=== PATIENT | female | born 1955 ===

== ENCOUNTER → 2018-03-07 | Outpatient (CLI) | payer OTHER ==
[~2018-03-07] MED LIST: ASPI325 PO; ASPI81CH PO; Cipro500 MG PO; ENOX80I SC; FURO40 PO; Flomax0.4 MG PO; Klor-Con 1010 MEQ PO; METF500 PO; METO100ER PO; Metoprolol Tar100 MG PO; Naprosyn500 MG PO; Norco 5-325 Ta1 EACH PO; OMEP20ER PO; ONDA4ODT MM; SPIR25 PO; TAMS.4ER PO; WARF5 PO; WARF7.5 PO; Zofran Odt4 MG PO
== END | disposition home or self-care (01) ==
LOC: LAB 13:35 → LAB SHORT 13:35
DX: K57.32 Diverticulitis of large intestine without perforation or abscess without bleeding (principal); R19.7 Diarrhea, unspecified
CPT/HCPCS: 83993

== ENCOUNTER 2018-03-22 08:32 | Day surgery (SDC) | payer OTHER ==
[~2018-03-22] VITALS: Ht 162.6 cm; Wt 89.5 kg
[~2018-03-22 08:32] MED LIST changes: -ENOX80I SC
[2018-03-22] MEDS ORDERED: ENOX80I SC (08:53)
== END 2018-03-22 11:35 | disposition home or self-care (01) ==
LOC: ORSCSDS 08:32
PROVIDERS: Student in an Organized Health Care Education/Training Program
PROC: 0DBN8ZX Excision of Sigmoid Colon, Via Natural or Artificial Opening Endoscopic, Diagnostic (ICD-10-PCS; principal; 2018-03-22 09:45)
PROC: 0DB98ZX Excision of Duodenum, Via Natural or Artificial Opening Endoscopic, Diagnostic (ICD-10-PCS; principal; 2018-03-22 09:45)
PROC: 0DBE8ZX Excision of Large Intestine, Via Natural or Artificial Opening Endoscopic, Diagnostic (ICD-10-PCS; principal; 2018-03-22 09:45)
PROC: 0DB68ZX Excision of Stomach, Via Natural or Artificial Opening Endoscopic, Diagnostic (ICD-10-PCS; principal; 2018-03-22 09:45)
PROC: 0DBP8ZX Excision of Rectum, Via Natural or Artificial Opening Endoscopic, Diagnostic (ICD-10-PCS; principal; 2018-03-22 09:45)
DX: R19.7 Diarrhea, unspecified (principal); D12.5 Benign neoplasm of sigmoid colon; K62.1 Rectal polyp; K44.9 Diaphragmatic hernia without obstruction or gangrene; K64.4 Residual hemorrhoidal skin tags; K29.40 Chronic atrophic gastritis without bleeding; K64.8 Other hemorrhoids; Z86.010 Personal history of colon polyps; K57.30 Diverticulosis of large intestine without perforation or abscess without bleeding; R14.0 Abdominal distension (gaseous); E11.9 Type 2 diabetes mellitus without complications; I10 Essential (primary) hypertension; I48.91 Unspecified atrial fibrillation; F17.210 Nicotine dependence, cigarettes, uncomplicated; E66.9 Obesity, unspecified; Z68.33 Body mass index [BMI] 33.0-33.9, adult; Z79.01 Long term (current) use of anticoagulants; Z79.82 Long term (current) use of aspirin; Z79.84 Long term (current) use of oral hypoglycemic drugs; Z79.899 Other long term (current) drug therapy
CPT/HCPCS: 82947; 88305; 88342; J0330; J1200; J1980; J2250; J2405; J3010; J7120

== ENCOUNTER 2018-10-08 13:47 | Observation (INO) | payer OTHER ==
[~2018-10-08] VITALS: Ht 162.6 cm; Wt 93.5 kg
[~2018-10-08 13:47] MED LIST changes: -ASPI81CH PO; +Aspirin EC81 MG PO; +ENOX80I SC; -OMEP20ER PO; +OMEPRAZOLE MAGN20 MG PO
[2018-10-08 14:30] LABS: BASOPHILS ABSOLUTE AUTO 0.07 K/mm3 (0.00-0.23); BASOPHILS PERCENT AUTO 1 % (0-2); EOSINOPHILS ABSOLUTE AUTO 0.58 K/mm3 (0.00-0.68); EOSINOPHILS PERCENT AUTO 4 % (0-6); Hematocrit 35.8 % (33.0-51.0); Hemoglobin 10.8 g/dL (11.5-16.0); IMMATURE GRAN ABSOLUTE AUTO 0.06 K/mm3 (0.00-0.10); IMMATURE GRAN PERCENT AUTO 0 % (0-1); LYMPHOCYTES ABSOLUTE AUTO 1.73 K/mm3 (0.84-5.20); LYMPHOCYTES PERCENT AUTO 13 % (21-46); MONOCYTES ABSOLUTE AUTO 0.95 K/mm3 (0.16-1.47); MONOCYTES PERCENT AUTO 7 % (4-13); Mean Corpuscular HGB 23.7 pg (26.0-34.0); Mean Corpuscular HGB Conc 30.2 g/dL (31.5-36.5); Mean Corpuscular Volume 79 fL (80-100); Mean Platelet Volume 11.1 fL (9.1-12.4); NEUTROPHILS ABSOLUTE AUTO 9.96 K/mm3 (1.96-9.15); NEUTROPHILS PERCENT AUTO 75 % (41-73); Platelet Count 334 K/mm3 (150-400); RDW Coefficient Variation 16.8 % (11.7-14.2); RDW Standard Deviation 47.2 fL (35.1-46.3); Red Blood Cell Count 4.55 M/mm3 (3.80-5.20); White Blood Cell Count 13.35 K/mm3 (4.00-11.30)
[2018-10-08 15:04] LABS: Alanine Aminotransfer (ALT/SGP 34 U/L (12-78); Albumin, Blood 3.4 g/dL (3.4-5.0); Albumin/Globulin Ratio 0.8 (0.8-1.8); Alk Phos 101 U/L (50-136); Anion Gap 9 mmol/L (6-16); Aspartate Aminotrans (AST/SGOT 32 U/L (12-37); Bilirubin, Total 0.8 mg/dL (0.1-1.0); Blood Urea Nitrogen 16 mg/dL (8-24); Bun/Creatinine Ratio 17.7 (12.0-20.0); CO2, Blood 23 mmol/L (21-32); Calcium, Blood 8.8 mg/dL (8.5-10.1); Chloride, Blood 105 mmol/L (98-108); Creatinine, Blood 0.91 mg/dL (0.40-1.00); Globulin, Blood 4.3 g/dL (2.2-4.0); Glomerular Filtration Rate >60 (60-); Glucose, Blood 234 mg/dL (70-99); Sodium, Blood 137 mmol/L (136-145); Total Protein, Blood 7.7 g/dL (6.4-8.2); Troponin I <0.015 ng/mL (0.000-0.040)
[2018-10-08 17:49] LABS: Influenza A Negative (NEGATIVE); Influenza B Negative (NEGATIVE)
[2018-10-08 18:56] LABS: International Normalized Ratio 2.65; Prothrombin Time Results 25.7 Sec (9.7-11.5)
[2018-10-08] MEDS ORDERED: METO50 PO (19:13)
--- NOTE | 2018-10-09 03:35 | NUR ---
SHIFT SUMMARY PT ADMITTED FOR SOB. FULL CODE. ADA DIET. TELE-[place] AT A RATE OF 108 PER SVP CHIEF MARKETING OFFICER. CBG BEFORE MEALS. ECHO IN THE AM. COUMADIN FOR DVT AND TREATMENT FOR HX OF A-FIB. INDEPENDENT. MEDS WHOLE WITH WATER. 20 G IV TO L AC IS SL. PT IS ALERT, ORIENTED, PLEASENT AND COOPERATIVE WHO CAME TO THE ED AFTER HAVING HAD SOME SOB FOR THE PAST 3 DAYS OR SO. WAS GIVE LASIX IN THE ED AND PT REPORTED FEELING MUCH BETTER SINCE SHE ARRIVED. PT LIVES AT HOME WITH AND PLANS TO RETURN WHEN DISCHARGED FROM THE HOSPITAL. PT APPEARS TO BE SLEEPING COMFORTABLY AT THIS TIME WITH NO APPARENT SIGNS OF ACUTE DISTRESS. ABLE TO MAKE NEEDS KNOWN AND CALL LIGHT IN REACH.
[2018-10-09 05:11] LABS: International Normalized Ratio 2.19; Prothrombin Time Results 21.6 Sec (9.7-11.5)
--- NOTE | 2018-10-09 13:06 | NUR ---
Echocardiogram completed.
[2018-10-09] MEDS ORDERED: POTCHL10ER PO (15:21)
[2018-10-09] MEDS ORDERED: Acetaminophen325 M1 PO (15:21)
[2018-10-09] MEDS ORDERED: FURO20 PO (15:21)
[2018-10-09] MEDS ORDERED: LEVFLO500 PO (15:22)
--- NOTE | 2018-10-09 17:05 | NUR ---
DISCHARGE INSTRUCTIONS COMPLETED AND DISCUSSED WITH PT EXPRESSING UNDERSTANDING. S.O. AT BEDSIDE TO DRIVE HER HOME. SCRIPTS FAXED TO [facility]. TO [facility] VIA W/C.
== END 2018-10-09 16:31 | disposition home or self-care (01) ==
LOC: ER 13:47 → ERHOLD 13:48 → MEDS 13:48 → ENPENDDIS 10-09 13:00 → MEDS 10-09 16:31
PROVIDERS: Emergency Medicine; ADMIT Hospitalist
DX: J81.1 Chronic pulmonary edema (principal); I11.0 Hypertensive heart disease with heart failure; I50.9 Heart failure, unspecified; E11.9 Type 2 diabetes mellitus without complications; I48.91 Unspecified atrial fibrillation; Z88.1 Allergy status to other antibiotic agents; Z88.8 Allergy status to other drugs, medicaments and biological substances; Z79.899 Other long term (current) drug therapy; Z79.01 Long term (current) use of anticoagulants; Z79.82 Long term (current) use of aspirin; Z79.84 Long term (current) use of oral hypoglycemic drugs; Z95.2 Presence of prosthetic heart valve; Z87.891 Personal history of nicotine dependence
CPT/HCPCS: 36415; 71046; 80053; 82947; 83880; 84484; 85025; 85610; 87804; 93005; 93010; 93306; 96374; 99285-25; J1940

== ENCOUNTER 2018-10-19 07:24 | Inpatient (IN) | payer OTHER ==
[~2018-10-19] VITALS: Ht 172.7 cm; Wt 93.5 kg
[~2018-10-19 07:24] MED LIST changes: +Acetaminophen325 M1 PO; +FURO20 PO; +LEVFLO500 PO; +METO50 PO; +POTCHL10ER PO
[2018-10-19 08:03] LABS: BASOPHILS ABSOLUTE AUTO 0.17 K/mm3 (0.00-0.23); BASOPHILS PERCENT AUTO 1 % (0-2); EOSINOPHILS ABSOLUTE AUTO 0.83 K/mm3 (0.00-0.68); EOSINOPHILS PERCENT AUTO 4 % (0-6); Hematocrit 35.3 % (33.0-51.0); Hemoglobin 10.5 g/dL (11.5-16.0); IMMATURE GRAN ABSOLUTE AUTO 0.11 K/mm3 (0.00-0.10); IMMATURE GRAN PERCENT AUTO 1 % (0-1); LYMPHOCYTES ABSOLUTE AUTO 3.75 K/mm3 (0.84-5.20); LYMPHOCYTES PERCENT AUTO 19 % (21-46); MONOCYTES ABSOLUTE AUTO 1.61 K/mm3 (0.16-1.47); MONOCYTES PERCENT AUTO 8 % (4-13); Mean Corpuscular HGB 23.5 pg (26.0-34.0); Mean Corpuscular HGB Conc 29.7 g/dL (31.5-36.5); Mean Corpuscular Volume 79 fL (80-100); Mean Platelet Volume 10.3 fL (9.1-12.4); NEUTROPHILS ABSOLUTE AUTO 12.88 K/mm3 (1.96-9.15); NEUTROPHILS PERCENT AUTO 67 % (41-73); Platelet Count 494 K/mm3 (150-400); RDW Standard Deviation 47.8 fL (35.1-46.3); Red Blood Cell Count 4.47 M/mm3 (3.80-5.20); White Blood Cell Count 19.35 K/mm3 (4.00-11.30)
[2018-10-19 08:15] LABS: International Normalized Ratio 3.63; Prothrombin Time Results 34.2 Sec (9.7-11.5)
[2018-10-19 08:20] LABS: Alanine Aminotransfer (ALT/SGP 29 U/L (12-78); Albumin, Blood 3.4 g/dL (3.4-5.0); Albumin/Globulin Ratio 0.8 (0.8-1.8); Alk Phos 99 U/L (50-136); Anion Gap 11 mmol/L (6-16); Aspartate Aminotrans (AST/SGOT 34 U/L (12-37); Bilirubin, Total 0.5 mg/dL (0.1-1.0); Blood Urea Nitrogen 19 mg/dL (8-24); Bun/Creatinine Ratio 20.1 (12.0-20.0); CO2, Blood 23 mmol/L (21-32); Calcium, Blood 8.5 mg/dL (8.5-10.1); Chloride, Blood 100 mmol/L (98-108); Creatinine, Blood 0.95 mg/dL (0.40-1.00); Globulin, Blood 4.1 g/dL (2.2-4.0); Glomerular Filtration Rate >60 (60-); Glucose, Blood 240 mg/dL (70-99); Potassium, Blood 4.1 mmol/L (3.5-5.5); Sodium, Blood 134 mmol/L (136-145); Total Protein, Blood 7.5 g/dL (6.4-8.2); Troponin I <0.015 ng/mL (0.000-0.040)
[2018-10-19] MEDS ORDERED: [UNRECOGNIZED DRUG - CODE] PO (10:06)
[2018-10-19] MEDS ORDERED: [UNRECOGNIZED DRUG - CODE] PO (10:11)
[2018-10-19 10:52] LABS: BASOPHILS ABSOLUTE AUTO 0.06 K/mm3 (0.00-0.23); BASOPHILS PERCENT AUTO 0 % (0-2); EOSINOPHILS ABSOLUTE AUTO 0.04 K/mm3 (0.00-0.68); EOSINOPHILS PERCENT AUTO 0 % (0-6); Hematocrit 31.1 % (33.0-51.0); Hemoglobin 9.5 g/dL (11.5-16.0); IMMATURE GRAN PERCENT AUTO 1 % (0-1); LYMPHOCYTES ABSOLUTE AUTO 1.13 K/mm3 (0.84-5.20); LYMPHOCYTES PERCENT AUTO 8 % (21-46); MONOCYTES ABSOLUTE AUTO 0.75 K/mm3 (0.16-1.47); MONOCYTES PERCENT AUTO 5 % (4-13); Mean Corpuscular HGB 23.6 pg (26.0-34.0); Mean Corpuscular HGB Conc 30.5 g/dL (31.5-36.5); Mean Corpuscular Volume 77 fL (80-100); Mean Platelet Volume 10.2 fL (9.1-12.4); NEUTROPHILS ABSOLUTE AUTO 12.53 K/mm3 (1.96-9.15); NEUTROPHILS PERCENT AUTO 86 % (41-73); Platelet Count 329 K/mm3 (150-400); RDW Coefficient Variation 16.7 % (11.7-14.2); RDW Standard Deviation 47.3 fL (35.1-46.3); Red Blood Cell Count 4.02 M/mm3 (3.80-5.20); White Blood Cell Count 14.61 K/mm3 (4.00-11.30)
[2018-10-19 12:50] LABS: Source, Urine Clean Catch
[2018-10-19 12:55] LABS: Bilirubin, Urine Neg (Neg); Blood, Urine 2+ (Neg); Glucose Qualitative, Urine Neg (Neg); Ketones, Urine Neg (Neg); Leukocyte Esterase, Urine Neg (Neg); Nitrite, Urine Neg (Neg); Protein, Urine Neg (Neg); Specific Gravity, Urine 1.015 (1.003-1.022); Urobilinogen, Urine NORM (Normal)
[2018-10-19 13:03] LABS: Appearance, Urine Clear (Clear); Color, Urine Pale Yellow (P-Yellow)
[2018-10-19 13:11] LABS: Bacteria Many /hpf; Red Blood Cells, Urine Not Seen /hpf (0-2); Squamous Epithelial Cells Rare /hpf (Few); White Blood Cells, Urine Not Seen /hpf (0-5)
[2018-10-19] MEDS ORDERED: METO100 PO ×2 (13:30→13:32)
[2018-10-19 14:15] LABS: Adenovirus Not Detected (NOT DETECT); Bordetella pertussis Not Detected (NOT DETECT); Chlamydophila pneumoniae Not Detected (NOT DETECT); Coronavirus 229E Not Detected (NOT DETECT); Coronavirus HKU1 Not Detected (NOT DETECT); Coronavirus NL63 Not Detected (NOT DETECT); Coronavirus OC43 Not Detected (NOT DETECT); Human Metapneumovirus Not Detected (NOT DETECT); Human Rhinovirus/Enterovirus Not Detected (NOT DETECT); Influenza A Not Detected (NOT DETECT); Influenza A/2009-H1 Not Detected (NOT DETECT); Influenza A/H1 Not Detected (NOT DETECT); Influenza A/H3 Not Detected (NOT DETECT); Influenza B Not Detected (NOT DETECT); Mycoplasma pneumoniae Not Detected (NOT DETECT); Parainfluenza Virus 1 Not Detected (NOT DETECT); Parainfluenza Virus 2 Not Detected (NOT DETECT); Parainfluenza Virus 3 Not Detected (NOT DETECT); Parainfluenza Virus 4 Not Detected (NOT DETECT); Respiratory Syncytial Virus Not Detected (NOT DETECT)
--- NOTE | 2018-10-19 18:17 | NUR ---
SHIFT SUMMARY, RESUMED CARE OF PT AT 1310, RECIVED REPORT FROM DERICK, ER NURSE. PT CAME UP ON 2L OF VIA NC. PT WAS MOMENTARLY PLACED ON BIPAP DUE TO DYSPNEA ON EXCERTION. OVER THE NEXT COUPLE HOURS, PT OXYGENATION IMPROVED AND IS CURRENTLY ON ROOM AIR, AND TOLERATING IT FAIRLY WELL. PT DENIES ANY PAIN AT THIS TIME. BED AT LOWEST LEVEL, AND CALL LIGHT IS WITHIN REACH. WILL CONTINUE TO MONITOR OXYGEN STATUS UNTIL REPORT IS GIVEN.
--- NOTE | 2018-10-19 18:51 | NUR ---
ARRIVAL TO UNIT Pt arrived to unit at 1310 from emergency department. Report recieved from Benjamin NINO by Ronel SERVIN, who will be caring for the pt in PCU. Pt mobilized from ED gurney to PCU bed with stand-pivot transfer. Pt tolerated activity well. Pt arrived wearing 2 LPM NC. Pt eventually titrated to room air. OOB several times to use bedside commode. Pt required BiPAP once, during an episode where she became tachypnic and anxious. Pt's O2 saturations remained above 90% during this episode. Report given to oncdolly Lee.
--- NOTE | 2018-10-19 20:26 | NUR ---
PATIENT GAVE SNEBARRY PERMISSION TO PROVIDE CARE ON 10/19/18.
[2018-10-20 04:24] LABS: BASOPHILS ABSOLUTE AUTO 0.06 K/mm3 (0.00-0.23); BASOPHILS PERCENT AUTO 0 % (0-2); EOSINOPHILS ABSOLUTE AUTO 0.35 K/mm3 (0.00-0.68); EOSINOPHILS PERCENT AUTO 3 % (0-6); Hematocrit 30.4 % (33.0-51.0); Hemoglobin 9.1 g/dL (11.5-16.0); IMMATURE GRAN ABSOLUTE AUTO 0.04 K/mm3 (0.00-0.10); IMMATURE GRAN PERCENT AUTO 0 % (0-1); LYMPHOCYTES ABSOLUTE AUTO 1.95 K/mm3 (0.84-5.20); LYMPHOCYTES PERCENT AUTO 14 % (21-46); MONOCYTES ABSOLUTE AUTO 1.17 K/mm3 (0.16-1.47); MONOCYTES PERCENT AUTO 8 % (4-13); Mean Corpuscular HGB 23.5 pg (26.0-34.0); Mean Corpuscular HGB Conc 29.9 g/dL (31.5-36.5); Mean Corpuscular Volume 79 fL (80-100); Mean Platelet Volume 9.9 fL (9.1-12.4); NEUTROPHILS ABSOLUTE AUTO 10.56 K/mm3 (1.96-9.15); NEUTROPHILS PERCENT AUTO 75 % (41-73); Platelet Count 315 K/mm3 (150-400); RDW Coefficient Variation 17.2 % (11.7-14.2); RDW Standard Deviation 48.7 fL (35.1-46.3); Red Blood Cell Count 3.87 M/mm3 (3.80-5.20); White Blood Cell Count 14.13 K/mm3 (4.00-11.30)
[2018-10-20 04:37] LABS: International Normalized Ratio 2.81; Prothrombin Time Results 27.1 Sec (9.7-11.5)
[2018-10-20 04:44] LABS: Albumin/Globulin Ratio 0.8 (0.8-1.8); Bilirubin, Total 0.7 mg/dL (0.1-1.0); Bun/Creatinine Ratio 17.5 (12.0-20.0); Calcium, Blood 7.8 mg/dL (8.5-10.1); Creatinine, Blood 1.03 mg/dL (0.40-1.00); Globulin, Blood 3.7 g/dL (2.2-4.0); Total Protein, Blood 6.7 g/dL (6.4-8.2); Troponin I 0.037 ng/mL (0.000-0.040)
[2018-10-20 13:49] LABS: Vancomycin, Trough 15.8 ug/mL (5.0-10.0)
--- NOTE | 2018-10-20 19:31 | NUR ---
SHIFT SUMMARY PT SITTING COMFORTABLY IN HER CHAIR ON RA SATURATING AT 92% AND A HEART RATE OF 120 SINUS TACH. PT ALERT AND ORIENTED X3. PT UTILIZES BSC WITH MINIMAL ASSIST. PT HAD ASPIRATION BOUT AT BREAKFAST THAT ESCALATED ANXIETY LEADING TO NEED FOR BIPAP RESCUE. BIPAP WAS USED FOR RESCUE, CONSIDERABLY LESS NEED FOR BIPAP THIS AFTERNOON. PT STATED ITCHING AT THE BEGINNING OF LEVAQUIN INFUSION IN R HAND, BUT SUBSIDED. IV WAS FLUSHED AT END OF SHIFT, PT STATED SLIGHT BURNING IN R. HAND IV. WILL CONTINUE TO MONITOR AND PASS ON TO SURVEILLANCE SYSTEM MONITOR RN. PT HAS BEEN FREE OF PAIN, AND NO ACUTE SOB EXACERBATIONS SINCE 1400. LUNG SOUNDS MINIMAL CRACKLES AND COARSNESS IN BILATERAL BASES.
--- NOTE | 2018-10-21 04:04 | NUR ---
SHIFT SUMMARY: PATIENT TOLERATED MSERIES BIPAP WELL. EXPERIENCED AN EPISODE OF DIAPHORESIS AND USED 2L NC, SAT. ABOVE 90%. TOLERATED VANCO AFTER TRANSFERRING TO L ARM IV SITE. BED LOW AND LOCK, CALL LIGHT WITHIN REACH AND USED APPROPRIATEDLY.
[2018-10-21 04:13] LABS: BASOPHILS ABSOLUTE AUTO 0.05 K/mm3 (0.00-0.23); BASOPHILS PERCENT AUTO 0 % (0-2); EOSINOPHILS ABSOLUTE AUTO 0.05 K/mm3 (0.00-0.68); EOSINOPHILS PERCENT AUTO 0 % (0-6); Hematocrit 28.1 % (33.0-51.0); Hemoglobin 8.4 g/dL (11.5-16.0); IMMATURE GRAN PERCENT AUTO 1 % (0-1); LYMPHOCYTES ABSOLUTE AUTO 2.14 K/mm3 (0.84-5.20); LYMPHOCYTES PERCENT AUTO 13 % (21-46); MONOCYTES ABSOLUTE AUTO 1.23 K/mm3 (0.16-1.47); MONOCYTES PERCENT AUTO 7 % (4-13); Mean Corpuscular HGB 23.3 pg (26.0-34.0); Mean Corpuscular HGB Conc 29.9 g/dL (31.5-36.5); Mean Corpuscular Volume 78 fL (80-100); NEUTROPHILS ABSOLUTE AUTO 12.98 K/mm3 (1.96-9.15); NEUTROPHILS PERCENT AUTO 79 % (41-73); Platelet Count 315 K/mm3 (150-400); RDW Coefficient Variation 17.2 % (11.7-14.2); RDW Standard Deviation 48.2 fL (35.1-46.3); White Blood Cell Count 16.55 K/mm3 (4.00-11.30)
[2018-10-21 04:29] LABS: International Normalized Ratio 1.83; Prothrombin Time Results 18.4 Sec (9.7-11.5)
[2018-10-21 04:32] LABS: Alanine Aminotransfer (ALT/SGP 24 U/L (12-78); Albumin, Blood 2.9 g/dL (3.4-5.0); Albumin/Globulin Ratio 0.8 (0.8-1.8); Alk Phos 66 U/L (50-136); Anion Gap 7 mmol/L (6-16); Aspartate Aminotrans (AST/SGOT 32 U/L (12-37); Bilirubin, Total 0.8 mg/dL (0.1-1.0); Blood Urea Nitrogen 21 mg/dL (8-24); Bun/Creatinine Ratio 22.1 (12.0-20.0); CO2, Blood 24 mmol/L (21-32); Calcium, Blood 7.8 mg/dL (8.5-10.1); Chloride, Blood 102 mmol/L (98-108); Creatinine, Blood 0.95 mg/dL (0.40-1.00); Globulin, Blood 3.7 g/dL (2.2-4.0); Glomerular Filtration Rate >60 (60-); Glucose, Blood 143 mg/dL (70-99); Potassium, Blood 3.9 mmol/L (3.5-5.5); Sodium, Blood 133 mmol/L (136-145); Total Protein, Blood 6.6 g/dL (6.4-8.2)
[2018-10-21 13:51] LABS: Vancomycin, Trough 25.5 ug/mL (5.0-10.0)
--- NOTE | 2018-10-21 17:46 | NUR ---
SHIFT SUMMARY PT AXO X3, UP IN THE CHAIR MOST OF THE DAY. ON RA MOST OF THE DAY WITH NO NEED FOR RESCUE BIPAP. SATURATING ON RA AT 94%. LUNG SOUNDS ARE DIMINISHED BUT CRACKLES HAVE SUBSIDED. PT IS UTILIZING INCENTIVE SPIROMETER AND FLUTTER VALVE EFFECTIVELY. PT HAD SMALL BOUT OF EXPIRATORY WHEEZING WITHOUT SOB AFTER AMBULATION TO [facility], RESPIRATORY THERAPY GAVE TREATMENT AND WHEEZING SUBSIDED. PT STATES FEELING TIRED TODAY AFTER LIMITED SLEEP LASTNIGHT, BUT OVERALL ANXIETY IS IMPROVING. CALL LIGHT IN REACH, PT ORIENTED TO NEED FOR STAFF WITH AMBULATION.
--- NOTE | 2018-10-22 01:37 | NUR ---
still sitting up in chair - personal preferance, a+o, cooperative with staff, calls appropriatly, aki appropriatly, infusing abx, will continue to monitor and treat as appropriat
[2018-10-22 04:20] LABS: BASOPHILS ABSOLUTE AUTO 0.04 K/mm3 (0.00-0.23); BASOPHILS PERCENT AUTO 0 % (0-2); EOSINOPHILS ABSOLUTE AUTO 0.03 K/mm3 (0.00-0.68); EOSINOPHILS PERCENT AUTO 0 % (0-6); Hematocrit 28.8 % (33.0-51.0); Hemoglobin 8.4 g/dL (11.5-16.0); IMMATURE GRAN PERCENT AUTO 1 % (0-1); LYMPHOCYTES ABSOLUTE AUTO 2.84 K/mm3 (0.84-5.20); LYMPHOCYTES PERCENT AUTO 16 % (21-46); MONOCYTES ABSOLUTE AUTO 1.55 K/mm3 (0.16-1.47); MONOCYTES PERCENT AUTO 9 % (4-13); Mean Corpuscular HGB 23.3 pg (26.0-34.0); Mean Corpuscular HGB Conc 29.2 g/dL (31.5-36.5); Mean Corpuscular Volume 80 fL (80-100); Mean Platelet Volume 10.3 fL (9.1-12.4); NEUTROPHILS ABSOLUTE AUTO 13.58 K/mm3 (1.96-9.15); NEUTROPHILS PERCENT AUTO 75 % (41-73); Platelet Count 340 K/mm3 (150-400); RDW Coefficient Variation 17.4 % (11.7-14.2); RDW Standard Deviation 48.9 fL (35.1-46.3); Red Blood Cell Count 3.61 M/mm3 (3.80-5.20); White Blood Cell Count 18.14 K/mm3 (4.00-11.30)
[2018-10-22 04:34] LABS: International Normalized Ratio 2.34
[2018-10-22 04:48] LABS: Anion Gap 9 mmol/L (6-16); Blood Urea Nitrogen 26 mg/dL (8-24); Bun/Creatinine Ratio 26.3 (12.0-20.0); CO2, Blood 22 mmol/L (21-32); Calcium, Blood 7.9 mg/dL (8.5-10.1); Chloride, Blood 100 mmol/L (98-108); Creatinine, Blood 0.99 mg/dL (0.40-1.00); Glomerular Filtration Rate >60 (60-); Glucose, Blood 126 mg/dL (70-99); Phosphorus, Blood 3.2 mg/dL (2.5-4.9); Sodium, Blood 131 mmol/L (136-145); Vancomycin, Random 14.2 ug/mL
[2018-10-22 04:50] LABS: PCO2 Arterial 35.9 mmHg (35-45); PO2 Arterial 67.5 mmHg (80-100); pH Blood Arterial 7.42 (7.35-7.45)
--- NOTE | 2018-10-22 07:22 | NUR ---
a+o, wanted to stay in chair all night due to breathing, encouraged pickle and incentive spirometer, call light in reach, able to make needs known, saline locked, room air, bipap available but not utilized during shift, walking rounds completed with day staff
--- NOTE | 2018-10-22 18:50 | NUR ---
SHIFT SUMMARY. A&OX4, SBA TO BATHROOM. PT IS NO MEDICAL FLOOR STATUS WITHOUT TELE. BIPAP D/C'D, ON RA. PT DENIES PAIN, SOB, N/V. NO OTHER CHANGES.
--- NOTE | 2018-10-22 20:00 | NUR ---
Initial Visit: Palliative Care Consult for AD/POST amd Pulmonary. Pt is A&Ox4 and denies pain at this time. Pt reports 5/7 dyspnea and states dyspnea worsens with expertion. Pt denies anxiety and nausea. Engaged in therapeutic conversation regarding goals of care including AD/POLST. Pt lives at home with her partner Chase and she is of Islam ruth. Pt reports having 3 daughters all live in [place]. Listened as Pt expressed grief regarding her son who was murdered 4 years ago. Offered emotional support. Pt reports adequate support with her partner Chase. Educated Pt on disease process of CHF. Encouraged Pt to have important conversation with her PCP and patient support specialist routinely regarding disease trajectory. Educated Pt on the importance of advanced care planning and to be proactive in a plan as the disease process takes its coarse. Discussed AD/POLST with Pt. Pt expresses interest in advance directive. Educated Pt on life sustaining measures and risk factors. Educated Pt on the importance of having a healthcare veterans employment representative. Pt states she will complete advance directive at home with her partner. Pt request an advance directive for Chase as well. This RN gave Pt 2 advance directives and instructed her to contact palliative care for any questions. Pt reports no conerns at this time. Plan: Will remain available
[2018-10-23 04:13] LABS: Hematocrit 28.5 % (33.0-51.0); Hemoglobin 8.5 g/dL (11.5-16.0); Mean Corpuscular HGB 23.1 pg (26.0-34.0); Mean Corpuscular HGB Conc 29.8 g/dL (31.5-36.5); Mean Platelet Volume 10.3 fL (9.1-12.4); Platelet Count 375 K/mm3 (150-400); RDW Coefficient Variation 17.5 % (11.7-14.2); RDW Standard Deviation 48.3 fL (35.1-46.3); Red Blood Cell Count 3.68 M/mm3 (3.80-5.20); White Blood Cell Count 15.66 K/mm3 (4.00-11.30)
[2018-10-23 04:15] LABS: Mean Corpuscular Volume 77 fL (80-100)
[2018-10-23 04:28] LABS: International Normalized Ratio 3.11; Prothrombin Time Results 29.7 Sec (9.7-11.5)
[2018-10-23 04:29] LABS: Albumin, Blood 3.3 g/dL (3.4-5.0); Anion Gap 8 mmol/L (6-16); Blood Urea Nitrogen 33 mg/dL (8-24); Bun/Creatinine Ratio 29.7 (12.0-20.0); CO2, Blood 27 mmol/L (21-32); Calcium, Blood 8.6 mg/dL (8.5-10.1); Chloride, Blood 101 mmol/L (98-108); Creatinine, Blood 1.11 mg/dL (0.40-1.00); Glomerular Filtration Rate 53 (60-); Glucose, Blood 107 mg/dL (70-99); Phosphorus, Blood 3.9 mg/dL (2.5-4.9); Potassium, Blood 3.9 mmol/L (3.5-5.5); Sodium, Blood 136 mmol/L (136-145)
--- NOTE | 2018-10-23 06:28 | NUR ---
SHIFT SUMMARY .. STAYED UP ALMOST ALL NOC TALKING ON PHONE AND WATCING TV IN RECLINER CHAIR. BIPAP DCD AND NO O2 REQUIRED. LUNGS CLEAR AND ENC TO USE I.S. AND FLUTTER VALVE FREQ AND NEEDS CONSTANT REMINDER./ HS SNACK . NO PAIN ISSUES OR OTHER ACUTE ISSUES. INDEPENDENT IN ROOM . MED NO TELE. DEPENTENT EDEMA 2+ LOWER EXT
--- NOTE | 2018-10-23 08:43 | NUR ---
pt sitting up in the chair for breakfast, a/ox3, pleasant and cooperative with care, follows commands well, denies pain, lungs are clear t/o, resp even and unlabored, nonproductive cough reported, hrr, +1 edema noted to b/l le, ppp+1, cap refill <3sec, vs stable, afebrile, iv site is clear and patent, s.l. btx4, abd flat soft nontender, voids without diff, skin c/w/d, mareinier cox, call light in reach.
--- NOTE | 2018-10-23 12:11 | NUR ---
Jhonny. WORKED WITH PT, SHE AMBULATED ABOUT 50 FT. DOING WELL. VS STABLE. AFEBRILE, CALL LIGHT IN REACH.
--- NOTE | 2018-10-23 17:55 | NUR ---
pt has spent most of the day in her chair, she states she is feeling better, no complaints. call light in reach.
[2018-10-24 04:43] LABS: Anion Gap 10 mmol/L (6-16); Blood Urea Nitrogen 33 mg/dL (8-24); Bun/Creatinine Ratio 32.4 (12.0-20.0); CO2, Blood 27 mmol/L (21-32); Calcium, Blood 9.6 mg/dL (8.5-10.1); Chloride, Blood 102 mmol/L (98-108); Creatinine, Blood 1.02 mg/dL (0.40-1.00); Glomerular Filtration Rate 58 (60-); Glucose, Blood 129 mg/dL (70-99); International Normalized Ratio 3.42; Phosphorus, Blood 4.2 mg/dL (2.5-4.9); Potassium, Blood 3.9 mmol/L (3.5-5.5); Prothrombin Time Results 32.4 Sec (9.7-11.5); Sodium, Blood 139 mmol/L (136-145)
--- NOTE | 2018-10-24 05:30 | NUR ---
SHIFT SUMMARY PT MEDICAL NO TELE STATUS. A&O X4. VSS. LUNG SOUNDS CLEAR T/O. SPO2 > 92% ON RA. PT STATES "I'M DOING SO MUCH BETTER. I CAN ACTUALLY SAY A SENTENCE AND HAVE A CONVERSATION WITH YOU W/OUT GETTING SOB." NO EVENTS T/O SHIFT. PT EAGER TO DISCHARGE HOME. WILL CONTINUE TO MONITOR AND PROVIDE CARE UNTIL REPORT OFF TO DAY SHIFT RN.
--- NOTE | 2018-10-24 08:00 | NUR ---
ASSUMED CARE PT ALERT AND ORIENTED. VS STABLE. 02 SATS >92% ON ROOM AIR. LS CLEAR. PT DENIES FEELING SOB. PT INDEPENDENT IN ROOM. PT STATES SHE IS READY TO DISCHARGE. WILL CONTINUE TO MONITOR.
[2018-10-24] MEDS ORDERED: AZIT500 PO (12:25)
[2018-10-24] MEDS ORDERED: CEPACOL SORE T1 EACH MM (12:26)
[2018-10-24] MEDS ORDERED: Acidophilus1 EAC2 PO (12:27)
[2018-10-24] MEDS ORDERED: CEFU500T30 PO (12:30)
[2018-10-24] MEDS ORDERED: DELTASONE20 MG PO (12:30)
[2018-10-24] MEDS ORDERED: SPIR25 PO (12:31)
--- NOTE | 2018-10-24 13:15 | NUR ---
PT PROVIDED DISCHARGE INSTRUCTIONS. CARE MANAGEMENT IN TO INFORM PT OF HOME HEALTH INSTRUCTIONS. IV REMOVED AND INTACT. ALL QUESTIONS ANSWERED. NEW MEDICATIONS FAXED TO [facility] AND PT EDUCATED. PT TAKEN OUT BY WHEELCHAIR.
--- NOTE | 2018-10-24 13:57 | NUR ---
Met pt sitting in a chair resting reports to be going home today and is happy. Offered prayers and support.
== END 2018-10-24 13:31 | disposition home health service (06) | DRG 871 ==
LOC: ER 07:24 → ERHOLD 10:12 → PCU 10:12
PROVIDERS: Emergency Medicine; Internal Medicine; ADMIT Family Medicine
PROC: 5A09357 Assistance with Respiratory Ventilation, Less than 24 Consecutive Hours, Continuous Positive Airway Pressure (ICD-10-PCS; principal; 2018-10-19)
DX: A41.51 Sepsis due to Escherichia coli [E. coli] (principal); J96.21 Acute and chronic respiratory failure with hypoxia; J18.1 Lobar pneumonia, unspecified organism; I50.33 Acute on chronic diastolic (congestive) heart failure; J44.1 Chronic obstructive pulmonary disease with (acute) exacerbation; J44.0 Chronic obstructive pulmonary disease with (acute) lower respiratory infection; Z95.2 Presence of prosthetic heart valve; I48.2 Chronic atrial fibrillation; Z79.01 Long term (current) use of anticoagulants; F17.210 Nicotine dependence, cigarettes, uncomplicated; Z79.82 Long term (current) use of aspirin; Z68.32 Body mass index [BMI] 32.0-32.9, adult; E66.9 Obesity, unspecified; G47.33 Obstructive sleep apnea (adult) (pediatric); K21.9 Gastro-esophageal reflux disease without esophagitis; Z79.84 Long term (current) use of oral hypoglycemic drugs; I11.0 Hypertensive heart disease with heart failure; E11.65 Type 2 diabetes mellitus with hyperglycemia; T38.0X5A Adverse effect of glucocorticoids and synthetic analogues, initial encounter; Y92.239 Unspecified place in hospital as the place of occurrence of the external cause
CPT/HCPCS: 36415; 36600; 71045; 71046; 80053; 80069; 80202; 81001; 82803; 82947; 83036; 83605; 83880; 84484; 85025; 85027; 85610; 87040; 87077; 87086; 87186; 87449; 87486; 87581; 87633; 87798; 93005; 93010; 94640; 94660; 94667; 94762; 96374; 96375; 97116; 97161; 97165; 97530; 97535; 99285-25; J0692; J0696; J1940; J1956; J3370; J7030; J7050; J7512

== ENCOUNTER 2018-10-29 22:17 | Inpatient (IN) | payer OTHER ==
[~2018-10-29] VITALS: Ht 170.2 cm; Wt 96.0 kg
[~2018-10-29 22:17] MED LIST changes: +AZIT500 PO; +Acidophilus1 EAC2 PO; +CEFU500T30 PO; +CEPACOL SORE T1 EACH MM; +DELTASONE20 MG PO; +METO100 PO; +[UNRECOGNIZED DRUG - CODE] PO; +[UNRECOGNIZED DRUG - CODE] PO
[2018-10-29] MEDS ORDERED: WARF7.5 PO (22:33)
[2018-10-29 22:38] LABS: BASOPHILS ABSOLUTE AUTO 0.05 K/mm3 (0.00-0.23); BASOPHILS PERCENT AUTO 0 % (0-2); EOSINOPHILS PERCENT AUTO 2 % (0-6); Hematocrit 31.1 % (33.0-51.0); Hemoglobin 9.3 g/dL (11.5-16.0); IMMATURE GRAN ABSOLUTE AUTO 0.11 K/mm3 (0.00-0.10); IMMATURE GRAN PERCENT AUTO 1 % (0-1); LYMPHOCYTES ABSOLUTE AUTO 2.57 K/mm3 (0.84-5.20); LYMPHOCYTES PERCENT AUTO 12 % (21-46); MONOCYTES ABSOLUTE AUTO 1.71 K/mm3 (0.16-1.47); MONOCYTES PERCENT AUTO 8 % (4-13); Mean Corpuscular HGB 23.3 pg (26.0-34.0); Mean Corpuscular HGB Conc 29.9 g/dL (31.5-36.5); Mean Corpuscular Volume 78 fL (80-100); Mean Platelet Volume 10.1 fL (9.1-12.4); NEUTROPHILS ABSOLUTE AUTO 16.34 K/mm3 (1.96-9.15); NEUTROPHILS PERCENT AUTO 77 % (41-73); Platelet Count 407 K/mm3 (150-400); RDW Coefficient Variation 17.2 % (11.7-14.2); RDW Standard Deviation 48.8 fL (35.1-46.3); White Blood Cell Count 21.18 K/mm3 (4.00-11.30)
[2018-10-29 22:50] LABS: Albumin, Blood 3.4 g/dL (3.4-5.0); Albumin/Globulin Ratio 0.9 (0.8-1.8); Bilirubin, Total 0.8 mg/dL (0.1-1.0); Bun/Creatinine Ratio 15.4 (12.0-20.0); Calcium, Blood 8.7 mg/dL (8.5-10.1); Creatinine, Blood 1.88 mg/dL (0.40-1.00); Globulin, Blood 3.6 g/dL (2.2-4.0); Potassium, Blood 4.3 mmol/L (3.5-5.5)
[2018-10-29 23:05] LABS: Source, Urine Clean Catch
[2018-10-29 23:08] LABS: Blood, Urine 5+ (Neg); Glucose Qualitative, Urine Neg (Neg); Ketones, Urine 1+ (Neg); Leukocyte Esterase, Urine 1+ (Neg); Nitrite, Urine Neg (Neg); Protein, Urine 2+ (Neg); Specific Gravity, Urine 1.025 (1.003-1.022); Urobilinogen, Urine 1+ (Normal)
[2018-10-29 23:13] LABS: Bilirubin, Urine 1+ (Neg)
[2018-10-29 23:14] LABS: Appearance, Urine Hazy (Clear); Color, Urine Amber (P-Yellow)
[2018-10-29 23:15] LABS: Amorphous Light (0-Heavy); Bacteria Mod /hpf; Red Blood Cells, Urine TNTC /hpf (0-2); Squamous Epithelial Cells Few /hpf (Few)
--- NOTE | 2018-10-30 01:35 | NUR ---
0135 ADMIT: PT ARRIVES TO ROOM 230 VIA GOURNEY FROM ER AND TRANSFERS SELF WITH SBA TO BED; APPEARS STEADY ON FEET. PT ORIENTED TO BED, ROOM, FALL PRECAUTIONS, AND CALL SYSTEM. DENIES PAIN AT THIS TIME. CALL LIGHT PLACED IN REACH.
--- NOTE | 2018-10-30 07:46 | NUR ---
TANIA: NEW ADMIT AFIB WITH RVR ON HOSPITALIST SERVICE. VSS, AFEBRILE ON ROOM AIR WITH TELE ART NSR IN THE 70'S. PT DENIES DIZZINESS, HEADACHE, SOB OR CHEST PAIN. CONTINUE HYDRATION AND AWAIT PT VOID. CONTINUE OT MONITOR PTT, LACTIC ACID.
[2018-10-30 08:37] LABS: BASOPHILS ABSOLUTE AUTO 0.03 K/mm3 (0.00-0.23); BASOPHILS PERCENT AUTO 0 % (0-2); EOSINOPHILS ABSOLUTE AUTO 0.34 K/mm3 (0.00-0.68); EOSINOPHILS PERCENT AUTO 2 % (0-6); Hematocrit 27.6 % (33.0-51.0); Hemoglobin 8.1 g/dL (11.5-16.0); IMMATURE GRAN ABSOLUTE AUTO 0.07 K/mm3 (0.00-0.10); IMMATURE GRAN PERCENT AUTO 1 % (0-1); LYMPHOCYTES ABSOLUTE AUTO 2.69 K/mm3 (0.84-5.20); LYMPHOCYTES PERCENT AUTO 19 % (21-46); MONOCYTES PERCENT AUTO 9 % (4-13); Mean Corpuscular HGB 22.8 pg (26.0-34.0); Mean Corpuscular HGB Conc 29.3 g/dL (31.5-36.5); Mean Corpuscular Volume 78 fL (80-100); Mean Platelet Volume 9.8 fL (9.1-12.4); NEUTROPHILS ABSOLUTE AUTO 10.02 K/mm3 (1.96-9.15); NEUTROPHILS PERCENT AUTO 69 % (41-73); Platelet Count 315 K/mm3 (150-400); RDW Coefficient Variation 17.5 % (11.7-14.2); RDW Standard Deviation 48.7 fL (35.1-46.3); Red Blood Cell Count 3.56 M/mm3 (3.80-5.20); White Blood Cell Count 14.45 K/mm3 (4.00-11.30)
[2018-10-30 08:52] LABS: International Normalized Ratio 1.79
[2018-10-30 09:03] LABS: Creatinine, Blood 1.75 mg/dL (0.40-1.00); Potassium, Blood 4.1 mmol/L (3.5-5.5)
--- NOTE | 2018-10-30 10:10 | NUR ---
RECEIVED REPORT FROM APPLIANCE SALES ASSOCIATE. PT TRANSFERRED TO ROOM ICU 2, ASSUMED CARE OF PT.
--- NOTE | 2018-10-30 10:30 | NUR ---
NURSING AND TRANSFER SUMMARY RECEIVED PT FROM SURGICAL UNIT. LUNGS WITH CRACKLES AND WHEEZES THROUGHOUT, 1L O2 NC, SATS 90%, INCREASED O2 FLOW TO 4L, INCREASED SATS TO 94%. DYSPNEA AT REST, TACHYPNEIC, SITTING UP ON SIDE OF BED, UNABLE TO LAY DOWN IN BED. BP ELEVATED 190'S/80'S, HR 132. CALLED DR. BLOOD TO REPORT. NEW ORDERS PROVIDED. ALERT AND ORIENTED X 4, ANXIOUS. NO IV ACCESS AT THIS TIME AND THEN WILL GIVE CARDIZEM PER NEW MD ORDER. BS X 4, MINIMAL MAYA URINE OUTPUT PER SURGICAL NURSE IN REPORT.
--- NOTE | 2018-10-30 10:40 | NUR ---
[place]OLA MOTOR BUS DRIVER, AT BEDSIDE TO PLACE A POWERGLIDE.
--- NOTE | 2018-10-30 11:00 | NUR ---
CALLED DR. BLOOD RE: ELEVATED BP 191/87, HR 109, DIFFICULTY BREATHING WITH WHEEZES, RR 42, SATS 91% ON 4L. NEW ORDERS PROVIDED FOR SOLUMEDROL, ATIVAN, CHEST XRAY, BREATHING TREATMENTS.
--- NOTE | 2018-10-30 11:27 | NUR ---
RADIOLOGY AT BEDSIDE FOR CHEST XRAY.
--- NOTE | 2018-10-30 11:35 | NUR ---
CALLED DR. BLOOD RE: ELEVATED BP AND CRACKLES THROUGHOUT, NEW ORDER FOR LASIX. REPIRATORY CARE AT BEDSIDE PROVIDING BREATHING TREATMENT. CARDIOLOG CONSULT CALLED IN TO DR. GONZALEZ.
--- NOTE | 2018-10-30 12:06 | NUR ---
NURSING SUMMARY IV STARTED IN LEFT UPPER ARM USING ULTRASOUND. ALERT AND ORIENTED X4, EXPERIENCED ANXIETY, MEDICATED WITH ATIVAN 2MG IVP. SINUS TACHYCARDIAC HR 118 AFTER RECEIVING DOSE OF CARDIZEM 20 MG IVP AND SOLUMEDROL 60 MG IVP. BLOOD PRESSURE REMAINS ELEVATED 190'S/80'S AND LUNGS WITH CRACKLES THROUGHOUT, TACHYPNEIC, DYSPNEIC, O2 SATS 91-93% ON 5L O2 NC, CALLED DR. BLOOD TO REPORT, GAVE NOW DOSE OF LASIX 40 MG IVP. PT REMAINS SITTING ELEVATED IN BED TO HELP WITH WORK OF BREATHING. BLOOD SUGAR = 300 (BEFORE SOLUMEDROL), GAVE 4 UNITS HUMALOG. AWAITING FIRST VOID AFTER GIVING LASIX.
--- NOTE | 2018-10-30 12:48 | NUR ---
ULTRASOUND AT BEDSIDE FOR KIDNEY ULTRASOUND.
--- NOTE | 2018-10-30 16:12 | NUR ---
TALKED TO DR. BLOOD AND CARLOS MERRITT: ELEVATED BP, HR, OXYGEN FLOW AT 5L, AND WORK OF BREATHING. NEW ORDERS FOR LASIX 60 MG IVP X1 AND METOPROLOL 150 MG PO X1 NOW.
--- NOTE | 2018-10-30 19:00 | NUR ---
ASSUME CARE; REPORT RECIEVED FROM CARIN OFF GOING RN. MONITOR INTACT SHOWING SINUS TACH. HEART RATE 100'S. DR KING IN ROOM TO SEE PATIENT ORDERS NOTED. DENIES CHEST PAIN HOWEVER BECOMES SHORT OF BREATH WITH ANY ACTIVITY. HOWEVER SPO2 REMAINS 95-98% ABDOMEN SOFT WITH BOWEL SOUNDS FOUR QUADS. VOIDS MAYA URINE GAIT STEADY TO TOILET. PAS TO LOWER EXTREMITIES. TRACE EDEMA. LUNG SOUNDS CLEAR UPPER LOBES WITH EXTENDED EXPIRATIOR WHEEZE IN BASES. RATE 20'S-30'S. CONTINUE TO MONITOR AND REPORT CHANGE IN PATIENT CONDITION
--- NOTE | 2018-10-30 21:20 | NUR ---
TRANSFER. DISCUSSED PENDING TRANSFER TO PCU 13 WITH PATIENT. PREPARING FOR TRANSFER.
--- NOTE | 2018-10-30 22:45 | NUR ---
TRANSFER TO PCU 13 PER WHEEL CHAIR AFTER CALLING REPORT TO DIXIE NINO TOLERATED TRANSFER WELL
[2018-10-31 04:23] LABS: BASOPHILS ABSOLUTE AUTO 0.01 K/mm3 (0.00-0.23); BASOPHILS PERCENT AUTO 0 % (0-2); EOSINOPHILS PERCENT AUTO 0 % (0-6); Hematocrit 27.3 % (33.0-51.0); Hemoglobin 8.1 g/dL (11.5-16.0); IMMATURE GRAN ABSOLUTE AUTO 0.12 K/mm3 (0.00-0.10); IMMATURE GRAN PERCENT AUTO 1 % (0-1); LYMPHOCYTES ABSOLUTE AUTO 1.51 K/mm3 (0.84-5.20); LYMPHOCYTES PERCENT AUTO 9 % (21-46); MONOCYTES ABSOLUTE AUTO 1.08 K/mm3 (0.16-1.47); MONOCYTES PERCENT AUTO 7 % (4-13); Mean Corpuscular HGB 23.2 pg (26.0-34.0); Mean Corpuscular HGB Conc 29.7 g/dL (31.5-36.5); Mean Corpuscular Volume 78 fL (80-100); Mean Platelet Volume 10.3 fL (9.1-12.4); NEUTROPHILS ABSOLUTE AUTO 13.81 K/mm3 (1.96-9.15); NEUTROPHILS PERCENT AUTO 84 % (41-73); Platelet Count 308 K/mm3 (150-400); RDW Coefficient Variation 17.2 % (11.7-14.2); RDW Standard Deviation 48.3 fL (35.1-46.3); Red Blood Cell Count 3.49 M/mm3 (3.80-5.20); White Blood Cell Count 16.53 K/mm3 (4.00-11.30)
[2018-10-31 04:38] LABS: International Normalized Ratio 1.87; Prothrombin Time Results 18.7 Sec (9.7-11.5)
[2018-10-31 04:44] LABS: Albumin, Blood 3.3 g/dL (3.4-5.0); Anion Gap 7 mmol/L (6-16); Blood Urea Nitrogen 32 mg/dL (8-24); Bun/Creatinine Ratio 24.8 (12.0-20.0); CO2, Blood 26 mmol/L (21-32); Calcium, Blood 9.1 mg/dL (8.5-10.1); Chloride, Blood 103 mmol/L (98-108); Creatinine, Blood 1.29 mg/dL (0.40-1.00); Glomerular Filtration Rate 44 (60-); Glucose, Blood 210 mg/dL (70-99); Phosphorus, Blood 3.3 mg/dL (2.5-4.9); Potassium, Blood 4.2 mmol/L (3.5-5.5); Sodium, Blood 136 mmol/L (136-145)
--- NOTE | 2018-10-31 07:00 | NUR ---
SHIFT SUMMARY PT CARE ASSUMED AT APPROXIMATELY 2250 LAST NIGHT FORM CONCEPT ARTIST. PT IS AOX4 AND HAS REMAINED SO THROUGHOUT SHIFT. VSS. PLEASANT AND COOPERATIVE WITH CARE. PT AMBULATES WITH STANDBY ASSIST TO RESTROOM WITHOUT DIFFICULTY. HEART RHYTHM HAS REMAINED IN SINUS RHYTHM OR SINUS TACH SINCE ARRIVAL. O2 HAS REMAINED >90% ON RA- PT TITRATED OFF OXYGEN UPON ARRIVAL TO PCU 13. PT HAS DENIED DYSPNEA OR PAIN THROUGHOUT SHIFT. NO OTHER CHANGES FROM SHIFT ASSESSMENT. WILL CONTINUE TO MONITOR AND REPORT TO ONCOMING SHIFT RN. BED IN LOW POSITION, CALL LIGHT IN REACH.
--- NOTE | 2018-10-31 07:55 | NUR ---
AM ASSESSMENT: Pt resing in bed on RA at this time. BT positive. Pulses palp. HR reg. LS with crackles in bases. Pt denies pain or SOB at this time. Pt appears slightly jaundiced or pale. VSS. Tele shows NSR in the 90's with PAC's. Call light in reach. Will continue to monitor.
--- NOTE | 2018-10-31 15:32 | NUR ---
UPDATE: At approximatly 1115 pt converted to afib RVR at a rate of 130's. BP stable. Pt stated that it felt like her heart was flipping and like she was rocking. States she felt slightly more SOB. BIox 96% on RA. Notified physician and order for IV push cardizem obtained and given. Pt HR decreased to 80-90's, still afib after cardizem push. At approximatly 1350 pt up to BSC. HR increased to 150's, afib. Physician notified and supervisor mixing notified. No new orders at that time. At about 1425 pt was resting at edge of bed and converted back to a NSR in the 90's. Physician notified. Pt denies needs at this time. Call light in reach. Will monitor.
[2018-10-31 15:52] LABS: Percent Saturation 5.5 % (15.0-50.0)
--- NOTE | 2018-10-31 18:00 | NUR ---
SHIFT SUMMARY: Pt sitting up in bed eating dinner at this time. Appian Developer just finished talking with pt. Pt has been in and out of afib rvr and NSR this shift. She again went back into afib rvr at 1645 of a rate of 150-160's. Pt was given 10mg IV push cardizem per sub arc operator orders. HR still in the 150's after cardizem push. Pt will be getting increased dose of Metoprolol again tonight. Pt is symptomatic with the afib RVR. States that it feels like she is rocking and becomes more SOB. BP has been stable. PT has denied other needs this shift. Will report to night RN.
[2018-10-31 21:38] LABS: Stool Occult Blood Guaiac 1 Pos (Neg)
--- NOTE | 2018-10-31 23:18 | NUR ---
PM NOTE. ASSUMED CARE OF PT APROX 1900, PT IS A&Ox4 AND SBA IN THE ROOM. PT WAS ADMITTED FOR AFIB RVR AND IS CURRENTLY BEING STARTED ON A CARDIZEM GTT AT 5 TO TITRATE. TELE INTACT, AFIB IN THE 130'S-140'S PER CROSS CUT SAW OPERATOR, PT'S BP 115/74. PT HAS 1+ EDEMA TO HER BLE. L/S CLEAR T/O PT IS ON RA AT 100%. BT PRESENT AND HYPERACTIVE ABD IS SOFT AND NONTENDER TO PLAP. CALL LIGHT IN REACH, BED IS LOCKED AND LOW WILL CONTINUE TO MONITOR.
--- NOTE | 2018-11-01 03:19 | NUR ---
PT UPDATE... AT APROX 0245 PT CONVERTED FROM AFIB TO NSR IN THE 70'S. PT'S BP 110/63. PT STATES THAT SHE FEELS NAUSEOUS AT THIS TIME, BUT DOES NOT WANT ANY MEDICATIONS FOR IT AT THIS TIME. WILL CONTINUE TO MONITOR.
--- NOTE | 2018-11-01 04:19 | NUR ---
PT UPDATE... CARDIZEM GTT WAS STOPPED AT 0415, PT HR IS 75 AND IS NSR. PT'S BP 129/74 PT C/O OF SEVERE ANXIETY AND RESTLESSNESS, WILL MEDCIATED PER EMAR. CALL LIGHT IN REACH, BED IS LOCKED AND LOW WILL CONTINUE TO MONITOR.
[2018-11-01 04:30] LABS: International Normalized Ratio 2.51; Prothrombin Time Results 24.5 Sec (9.7-11.5)
--- NOTE | 2018-11-01 06:00 | NUR ---
SHIFT SUMMARY. PT CONVERTED FROM AFIB TO NSR IN THE 70'S APROX 0245. PT'S B/P HAS BEEN STABLE T/O SHIFT. CARDIZEM WAS D/C'D AT 0415, PT HAS REMAINED IN NSR SINCE D/C. PT C/O OF ANXIETY AND RESTLESSNESS, PT WAS MEDICATED PER EMAR W/GOOD RESULTS. PT HAS NOT SLEPT VERY WELL MOST OF THIS SHIFT. CALL LIGHT IN REACH, BED IS LOCKED AND LOW WILL CONTINUE TO MONITOR UNTIL REPORT IS GIVEN TO ONCOMING RN.
[2018-11-01 07:26] LABS: BASOPHILS ABSOLUTE AUTO 0.07 K/mm3 (0.00-0.23); BASOPHILS PERCENT AUTO 0 % (0-2); EOSINOPHILS ABSOLUTE AUTO 0.07 K/mm3 (0.00-0.68); EOSINOPHILS PERCENT AUTO 0 % (0-6); Hematocrit 27.2 % (33.0-51.0); Hemoglobin 8.2 g/dL (11.5-16.0); IMMATURE GRAN ABSOLUTE AUTO 0.23 K/mm3 (0.00-0.10); IMMATURE GRAN PERCENT AUTO 1 % (0-1); LYMPHOCYTES ABSOLUTE AUTO 3.35 K/mm3 (0.84-5.20); LYMPHOCYTES PERCENT AUTO 15 % (21-46); MONOCYTES ABSOLUTE AUTO 2.21 K/mm3 (0.16-1.47); MONOCYTES PERCENT AUTO 10 % (4-13); Mean Corpuscular HGB Conc 30.1 g/dL (31.5-36.5); Mean Corpuscular Volume 76 fL (80-100); Mean Platelet Volume 10.9 fL (9.1-12.4); NEUTROPHILS ABSOLUTE AUTO 16.15 K/mm3 (1.96-9.15); NEUTROPHILS PERCENT AUTO 73 % (41-73); NRBC ABSOLUTE 0.03 K/mm3 (0.00-0.02); NRBC Auto 0.1 /100 WBC (0.0-0.2); Platelet Count 395 K/mm3 (150-400); RDW Coefficient Variation 17.3 % (11.7-14.2); RDW Standard Deviation 47.8 fL (35.1-46.3); Red Blood Cell Count 3.57 M/mm3 (3.80-5.20); White Blood Cell Count 22.08 K/mm3 (4.00-11.30)
[2018-11-01 07:42] LABS: Bun/Creatinine Ratio 25.8 (12.0-20.0); Calcium, Blood 8.5 mg/dL (8.5-10.1); Creatinine, Blood 1.86 mg/dL (0.40-1.00); Potassium, Blood 4.2 mmol/L (3.5-5.5)
--- NOTE | 2018-11-01 11:19 | NUR ---
Echocardiogram completed.
[2018-11-01 13:43] LABS: BASOPHILS ABSOLUTE AUTO 0.04 K/mm3 (0.00-0.23); BASOPHILS PERCENT AUTO 0 % (0-2); EOSINOPHILS ABSOLUTE AUTO 0.06 K/mm3 (0.00-0.68); EOSINOPHILS PERCENT AUTO 0 % (0-6); Hematocrit 27.3 % (33.0-51.0); Hemoglobin 8.1 g/dL (11.5-16.0); IMMATURE GRAN PERCENT AUTO 1 % (0-1); LYMPHOCYTES ABSOLUTE AUTO 3.69 K/mm3 (0.84-5.20); LYMPHOCYTES PERCENT AUTO 21 % (21-46); MONOCYTES ABSOLUTE AUTO 1.39 K/mm3 (0.16-1.47); MONOCYTES PERCENT AUTO 8 % (4-13); Mean Corpuscular HGB 22.8 pg (26.0-34.0); Mean Corpuscular HGB Conc 29.7 g/dL (31.5-36.5); Mean Corpuscular Volume 77 fL (80-100); Mean Platelet Volume 10.3 fL (9.1-12.4); NEUTROPHILS ABSOLUTE AUTO 12.45 K/mm3 (1.96-9.15); NEUTROPHILS PERCENT AUTO 70 % (41-73); Platelet Count 309 K/mm3 (150-400); RDW Coefficient Variation 17.2 % (11.7-14.2); RDW Standard Deviation 47.5 fL (35.1-46.3); Red Blood Cell Count 3.56 M/mm3 (3.80-5.20); White Blood Cell Count 17.73 K/mm3 (4.00-11.30)
--- NOTE | 2018-11-01 19:27 | NUR ---
SHIFT SUMMARY PT ALERT AND ORIENTED. VS STABLE. O2 SATS HAVE REMAINED ABOVE 90% ON RA. PT IS DYSPNEIC ON EXERTION, BUT SATS REMAIN ABOVE 90%. PT DENIES ANY CP. CARDIOLOGY IN TO SEE PT THIS EVENING WITH NEW ORDERS FOR PT TO NEED MITRAL VALVE REPLACEMENT AND POSSIBLE TRANSFER. WILL AWAIT TRANSFER ORDERS. FAMILY AT BEDSIDE. REPORT GIVEN TO RIBBON SWEATBAND OPERATOR RN.
[2018-11-02 03:59] LABS: BASOPHILS ABSOLUTE AUTO 0.05 K/mm3 (0.00-0.23); BASOPHILS PERCENT AUTO 0 % (0-2); EOSINOPHILS ABSOLUTE AUTO 0.18 K/mm3 (0.00-0.68); EOSINOPHILS PERCENT AUTO 1 % (0-6); Hematocrit 26.4 % (33.0-51.0); Hemoglobin 7.9 g/dL (11.5-16.0); IMMATURE GRAN ABSOLUTE AUTO 0.08 K/mm3 (0.00-0.10); IMMATURE GRAN PERCENT AUTO 1 % (0-1); LYMPHOCYTES ABSOLUTE AUTO 2.46 K/mm3 (0.84-5.20); LYMPHOCYTES PERCENT AUTO 15 % (21-46); MONOCYTES ABSOLUTE AUTO 1.46 K/mm3 (0.16-1.47); MONOCYTES PERCENT AUTO 9 % (4-13); Mean Corpuscular HGB Conc 29.9 g/dL (31.5-36.5); Mean Corpuscular Volume 77 fL (80-100); Mean Platelet Volume 10.4 fL (9.1-12.4); NEUTROPHILS ABSOLUTE AUTO 11.75 K/mm3 (1.96-9.15); NEUTROPHILS PERCENT AUTO 74 % (41-73); Platelet Count 308 K/mm3 (150-400); RDW Coefficient Variation 17.4 % (11.7-14.2); RDW Standard Deviation 47.7 fL (35.1-46.3); Red Blood Cell Count 3.43 M/mm3 (3.80-5.20); White Blood Cell Count 15.98 K/mm3 (4.00-11.30)
[2018-11-02 04:14] LABS: International Normalized Ratio 2.4; Prothrombin Time Results 23.5 Sec (9.7-11.5)
[2018-11-02 04:22] LABS: Bun/Creatinine Ratio 29.8 (12.0-20.0); Calcium, Blood 8.5 mg/dL (8.5-10.1); Creatinine, Blood 1.31 mg/dL (0.40-1.00); Potassium, Blood 3.9 mmol/L (3.5-5.5)
--- NOTE | 2018-11-02 05:21 | NUR ---
END OF SHIFT SUMMARY ASSUMED CARE OF PT @1900. PT ALERT AND ORIENTED TALKING WITH STAFF. SPOUSE AT BEDSIDE BUT LEAVES WITHIN 30 MINUTES OF SHIFT CHANGE. PT PRESENTS WITH EXP WHEEZES, SATS >92%. WHEEZES HAVE RESIDED T/O NIGHT. BREATH SOUNDS CLEAR NOW TO AUSCULTATION. PT HAS REMAINED IN SR-SIT THIS SHIFT. AFTER SCHEDULED DOSE OF 200MG METOPROL, PT HAS REMAINED IN 90'S TO 100'S HR. HAVE BEEN MONITORING HR. VS HAVE REMAINED STABLE T/O THIS SHIFT. GI CONSULT HAS NOT BEEN CALLED IN DUE TO NO GI DR COVERAGE. DAY NURSE ALERTED THIS NURSE ABOUT THIS AND THAT THE GI CONSULT WOULD BE CALLED IN THIS DAY SHIFT 11/02/18 DUE TO HAVING COVERAGE. PT HAS APPEARED TO BE RESTING T/O SHIFT. WILL CONTINEU TOP MONITOR PT UNTIL SHIFT CHANGE. BED IN LOW POSITION, CALL LIGHT WITHIN REACH OF PT.
--- NOTE | 2018-11-02 14:26 | NUR ---
Met. in bed and talking to her in the room on visit, pt reports that she may be going to [place] , offered spiritual suport and prayers
--- NOTE | 2018-11-02 14:35 | NUR ---
PT ALERT AND ORIENTED. TRANSFER TO [facility] IN [place] DISCUSSED WITH PT BY DR. KING. ALL QUESTIONS ANSWERED. TRANSPORT CALLED. VS STABLE AT THIS TIME. ATTEMPTED TO CALL REPORT TO ACCEPTING NURSE. WILL AWAIT CALL TO GIVE REPORT. PT TAKEN BY TRANSPORT.
== END 2018-11-02 14:17 | disposition short-term general hospital (02) | DRG 307 ==
LOC: ER 22:17 → SURS 22:18 → ICUE 22:18 → SURS 10-30 01:08 → ICUE 10-30 01:22 → PCU 10-30 14:26 → ICUE 10-30 14:26 → PCU 10-30 22:45
PROVIDERS: Emergency Medicine; Internal Medicine; ADMIT Hospitalist
DX: T82.09XA Other mechanical complication of heart valve prosthesis, initial encounter (principal); I50.32 Chronic diastolic (congestive) heart failure; E87.2 Acidosis; N17.9 Acute kidney failure, unspecified; R65.10 Systemic inflammatory response syndrome (SIRS) of non-infectious origin without acute organ dysfunction; I05.0 Rheumatic mitral stenosis; I48.0 Paroxysmal atrial fibrillation; Z79.84 Long term (current) use of oral hypoglycemic drugs; Z79.82 Long term (current) use of aspirin; J44.9 Chronic obstructive pulmonary disease, unspecified; Z95.2 Presence of prosthetic heart valve; D63.8 Anemia in other chronic diseases classified elsewhere; E66.9 Obesity, unspecified; Z68.31 Body mass index [BMI] 31.0-31.9, adult; F17.210 Nicotine dependence, cigarettes, uncomplicated; E86.0 Dehydration; Z79.01 Long term (current) use of anticoagulants; K21.9 Gastro-esophageal reflux disease without esophagitis; E11.9 Type 2 diabetes mellitus without complications; R31.9 Hematuria, unspecified; D72.829 Elevated white blood cell count, unspecified; T38.0X5A Adverse effect of glucocorticoids and synthetic analogues, initial encounter; Y92.9 Unspecified place or not applicable; R06.09 Other forms of dyspnea; I07.1 Rheumatic tricuspid insufficiency; I11.0 Hypertensive heart disease with heart failure; N20.0 Calculus of kidney
CPT/HCPCS: 36415; 51701; 71045; 76000; 76770; 80048; 80053; 80069; 81001; 82272; 82728; 82947; 83540; 83550; 83605; 83880; 84484; 85025; 85610; 87040; 87086; 93005; 93010; 93308; 94640; 94664; 94667; 94760; 96361; 96361-59; 96374-59; 96375; 96376; 98960; 99285-25; G0378; J1940; J2060; J2930; J7030

== ENCOUNTER → 2019-06-18 | Outpatient (CLI) | payer OTHER ==
[~2019-06-18] MED LIST changes: -FURO20 PO; +K-Dur10 MEQ PO; +Lopressor 25 mg25 MG PO; +OXYC5 PO
== END | disposition home or self-care (01) ==
LOC: LAB SHORT 18:00 → LAB 18:00
DX: J02.9 Acute pharyngitis, unspecified (principal)
CPT/HCPCS: 87081

== ENCOUNTER 2020-03-31 17:24 | Inpatient (IN) | payer OTHER | END 2020-04-03 12:48 | disposition home or self-care (01) | DRG 813 | LOC: ER 17:24 → MEDS 17:25 | PROVIDERS: ADMIT Internal Medicine | PROC: 30233N1 Transfusion of Nonautologous Red Blood Cells into Peripheral Vein, Percutaneous Approach (ICD-10-PCS; 2020-04-01) | PROC: 0DJ08ZZ Inspection of Upper Intestinal Tract, Via Natural or Artificial Opening Endoscopic (ICD-10-PCS; principal; 2020-04-02) | DX: D68.32 Hemorrhagic disorder due to extrinsic circulating anticoagulants (principal); D62 Acute posthemorrhagic anemia; K92.1 Melena; I50.32 Chronic diastolic (congestive) heart failure; I48.20 Chronic atrial fibrillation, unspecified; Z20.828 Contact with and (suspected) exposure to other viral communicable diseases; T45.515A Adverse effect of anticoagulants, initial encounter; T39.015A Adverse effect of aspirin, initial encounter; I11.0 Hypertensive heart disease with heart failure; E11.9 Type 2 diabetes mellitus without complications; E87.70 Fluid overload, unspecified; F17.210 Nicotine dependence, cigarettes, uncomplicated; K21.9 Gastro-esophageal reflux disease without esophagitis; D72.829 Elevated white blood cell count, unspecified; Z88.8 Allergy status to other drugs, medicaments and biological substances; Z88.3 Allergy status to other anti-infective agents; Z79.899 Other long term (current) drug therapy; Z79.84 Long term (current) use of oral hypoglycemic drugs; Z79.82 Long term (current) use of aspirin; Z79.891 Long term (current) use of opiate analgesic; Z95.0 Presence of cardiac pacemaker; Z95.3 Presence of xenogenic heart valve ==

== ENCOUNTER 2023-05-30 05:47 | Emergency (ER) | payer OTHER ==
[~2023-05-30] VITALS: Ht 162.6 cm; Wt 63.5 kg
[~2023-05-30 05:47] MED LIST changes: +ASCO500 PO; +Cartia Xt180 MG PO; +DILT180 PO; +FERSU300 PO; +LANOXIN125 MCG PO; +LOSA50 PO; +Vitamin D2000 UNIT PO
[2023-05-30] MEDS ORDERED: XARELTO20 MG PO (06:02)
[2023-05-30 06:18] LABS: BASOPHILS ABSOLUTE AUTO 0.06 K/mm3 (0.00-0.23); BASOPHILS PERCENT AUTO 1 % (0-2); EOSINOPHILS ABSOLUTE AUTO 0.62 K/mm3 (0.00-0.68); EOSINOPHILS PERCENT AUTO 7 % (0-6); Hematocrit 39.7 % (33.0-51.0); Hemoglobin 13.7 g/dL (11.5-16.0); IMMATURE GRAN ABSOLUTE AUTO 0.02 K/mm3 (0.00-0.10); IMMATURE GRAN PERCENT AUTO 0 % (0-1); LYMPHOCYTES ABSOLUTE AUTO 3.14 K/mm3 (0.84-5.20); LYMPHOCYTES PERCENT AUTO 34 % (21-46); MONOCYTES ABSOLUTE AUTO 0.76 K/mm3 (0.16-1.47); MONOCYTES PERCENT AUTO 8 % (4-13); Mean Corpuscular HGB Conc 34.5 g/dL (31.5-36.5); Mean Corpuscular Volume 87 fL (80-100); Mean Platelet Volume 10.1 fL (9.1-12.4); NEUTROPHILS ABSOLUTE AUTO 4.75 K/mm3 (1.96-9.15); NEUTROPHILS PERCENT AUTO 51 % (41-73); Platelet Count 154 K/mm3 (150-400); RDW Coefficient Variation 13.1 % (11.7-14.2); RDW Standard Deviation 40.8 fL (35.1-46.3); Red Blood Cell Count 4.57 M/mm3 (3.80-5.20); White Blood Cell Count 9.35 K/mm3 (4.00-11.30)
[2023-05-30 06:37] LABS: Albumin, Blood 4.1 g/dL (3.4-5.0); Albumin/Globulin Ratio 1.1 (0.8-1.8); Bilirubin, Total 0.2 mg/dL (0.1-1.0); Bun/Creatinine Ratio 16.5 (12.0-20.0); Calcium, Blood 8.9 mg/dL (8.5-10.1); Creatinine, Blood 1.15 mg/dL (0.40-1.00); Globulin, Blood 3.6 g/dL (2.2-4.0); Potassium, Blood 4.1 mmol/L (3.5-5.5); Total Protein, Blood 7.7 g/dL (6.4-8.2)
[2023-05-30 07:26] LABS: Source, Urine Clean Catch
[2023-05-30 07:37] LABS: Appearance, Urine Hazy (Clear); Bilirubin, Urine Neg (Neg); Blood, Urine 2+ (Neg); Color, Urine Yellow (P-Yellow); Glucose Qualitative, Urine Neg (Neg); Ketones, Urine Neg (Neg); Leukocyte Esterase, Urine Neg (Neg); Nitrite, Urine Pos (Neg); Protein, Urine Neg (Neg); Specific Gravity, Urine 1.015 (1.003-1.022); Urobilinogen, Urine NORM (Normal)
[2023-05-30 07:45] LABS: Bacteria Many /hpf; Red Blood Cells, Urine 0-2 /hpf (0-2); Squamous Epithelial Cells Few /hpf (Few)
[2023-05-30] MEDS ORDERED: CEFP200 PO (08:08)
[2023-05-30 08:34] VITALS: BP 138/72
== END 2023-05-30 08:36 | disposition home or self-care (01) ==
LOC: ER 05:47
PROVIDERS: Emergency Medicine
DX: N39.0 Urinary tract infection, site not specified (principal); I48.91 Unspecified atrial fibrillation; F17.210 Nicotine dependence, cigarettes, uncomplicated; Z95.0 Presence of cardiac pacemaker; Z79.01 Long term (current) use of anticoagulants; Z79.899 Other long term (current) drug therapy; Z88.1 Allergy status to other antibiotic agents; Z88.4 Allergy status to anesthetic agent; Z88.8 Allergy status to other drugs, medicaments and biological substances
CPT/HCPCS: 74176; 80053; 81001; 85025; 87077; 87086; 87186; 96361; 96374; 96375; 99284-25; J2405; J3010; J7030

== ENCOUNTER 2023-07-29 12:30 | Emergency (ER) | payer OTHER ==
[~2023-07-29] VITALS: Ht 162.6 cm; Wt 64.4 kg
[~2023-07-29 12:30] MED LIST changes: +CEFP200 PO; +XARELTO20 MG PO
[2023-07-29 13:50] LABS: Source, Urine Clean Catch
[2023-07-29 13:54] LABS: BASOPHILS ABSOLUTE AUTO 0.05 K/mm3 (0.00-0.23); BASOPHILS PERCENT AUTO 1 % (0-2); EOSINOPHILS PERCENT AUTO 4 % (0-6); Hematocrit 41.4 % (33.0-51.0); IMMATURE GRAN ABSOLUTE AUTO 0.02 K/mm3 (0.00-0.10); IMMATURE GRAN PERCENT AUTO 0 % (0-1); LYMPHOCYTES ABSOLUTE AUTO 1.84 K/mm3 (0.84-5.20); LYMPHOCYTES PERCENT AUTO 22 % (21-46); MONOCYTES ABSOLUTE AUTO 0.57 K/mm3 (0.16-1.47); MONOCYTES PERCENT AUTO 7 % (4-13); Mean Corpuscular HGB 29.3 pg (26.0-34.0); Mean Corpuscular HGB Conc 33.8 g/dL (31.5-36.5); Mean Corpuscular Volume 87 fL (80-100); Mean Platelet Volume 10.4 fL (9.1-12.4); NEUTROPHILS ABSOLUTE AUTO 5.71 K/mm3 (1.96-9.15); NEUTROPHILS PERCENT AUTO 67 % (41-73); Platelet Count 162 K/mm3 (150-400); RDW Coefficient Variation 13.2 % (11.7-14.2); RDW Standard Deviation 41.8 fL (35.1-46.3); Red Blood Cell Count 4.78 M/mm3 (3.80-5.20); White Blood Cell Count 8.49 K/mm3 (4.00-11.30)
[2023-07-29 13:58] LABS: Appearance, Urine Clear (Clear); Bilirubin, Urine Neg (Neg); Blood, Urine 1+ (Neg); Color, Urine Yellow (P-Yellow); Glucose Qualitative, Urine 1+ (Neg); Ketones, Urine Neg (Neg); Leukocyte Esterase, Urine 1+ (Neg); Nitrite, Urine Neg (Neg); Protein, Urine Neg (Neg); Specific Gravity, Urine 1.015 (1.003-1.022); Urobilinogen, Urine NORM (Normal)
[2023-07-29] MEDS ORDERED: DILTIAZEM 24HR300 MG PO (14:10)
[2023-07-29] MEDS ORDERED: LOSA50 PO (14:11)
[2023-07-29 14:13] LABS: Bilirubin, Total 0.4 mg/dL (0.1-1.0); Bun/Creatinine Ratio 17.3 (12.0-20.0); Calcium, Blood 9.7 mg/dL (8.5-10.1); Creatinine, Blood 0.75 mg/dL (0.40-1.00); Globulin, Blood 3.9 g/dL (2.2-4.0); Total Protein, Blood 7.9 g/dL (6.4-8.2)
[2023-07-29 14:22] LABS: Bacteria Few /hpf; Squamous Epithelial Cells Few /hpf (Few)
[2023-07-29] MEDS ORDERED: HYDR1TAB94 PO (15:11)
[2023-07-29] MEDS ORDERED: CEFD300 PO (15:11)
[2023-07-29 15:30] VITALS: BP 143/63
== END 2023-07-29 15:50 | disposition home or self-care (01) ==
LOC: ER 12:30
PROVIDERS: Student in an Organized Health Care Education/Training Program
DX: N10 Acute pyelonephritis (principal); K57.30 Diverticulosis of large intestine without perforation or abscess without bleeding; F17.210 Nicotine dependence, cigarettes, uncomplicated; Z88.1 Allergy status to other antibiotic agents; Z88.4 Allergy status to anesthetic agent; Z88.8 Allergy status to other drugs, medicaments and biological substances; I48.91 Unspecified atrial fibrillation; Z79.01 Long term (current) use of anticoagulants; Z79.84 Long term (current) use of oral hypoglycemic drugs; Z79.899 Other long term (current) drug therapy; Z87.442 Personal history of urinary calculi
CPT/HCPCS: 74177; 80053; 81001; 83690; 85025; 87077; 87086; 87186; 93005; 93010; 96365-59; 99284-25; J0696; Q9967